=== PATIENT | female | born 1955 ===

== ENCOUNTER 2020-05-24 07:12 | Day surgery (SDC) | payer OTHER ==
[~2020-05-24 07:12] MED LIST: Lactated Ringers 1,000 ML IV SCH; Midazolam 1 MG/ML 2 ML SDV ONE; Propofol 200 MG/20 ML SDV ONE; Sodium Chloride 0.9% 10 ML SDV IV PRN; Sodium Chloride 0.9% 10 ML Syringe FLUSH PRN; Sodium Chloride 0.9% 2.5 ML Syringe FLUSH PRN; fentaNYL 100 MCG/2 ML SDV ONE
--- NOTE | 2020-05-24 07:53 | PCM.PREANE ---
Preanesthetic Assessment - Anesthesia/Transfusion/Family Hx Anesthesia History: Prior Anesthesia Without Reaction Family History of Anesthesia Reaction: No Transfusion History: No Prior Transfusion(s) - Review of Systems General: No Symptoms Pulmonary: No Symptoms Cardiovascular: No Symptoms Gastrointestinal: No Symptoms Neurological: No Symptoms Other: Reports: None - Physical Assessment NPO Status Date: 05/24/20 NPO Status Time: 00:05 Height: 5 ft 6 in Weight: 222 lb ASA Class: 2 Mental Status: Alert & Oriented x3 Airway Class: Mallampati = 3 Dentition: Reports: Normal Dentition ROM/Head Extension: Full Lungs: Clear to Auscultation, Normal Respiratory Effort Cardiovascular: Regular Rate, Regular Rhythm - Allergies Allergies/Adverse Reactions: Allergies Allergy/AdvReac Type Severity Reaction Status Date / Time Penicillins Allergy Itching Verified 05/24/20 07:47 Sulfa (Sulfonamide Allergy Other Verified 05/24/20 07:47 Antibiotics) - Anesthesia Plan Pre-Op Medication Ordered: None - Acknowledgements Anesthesia Type Planned: General Anesthesia Pt an Appropriate Candidate for the Planned Anesthesia: Yes Alternatives and Risks of Anesthesia Discussed w Pt/Guardian: Yes Pt/Guardian Understands and Agrees with Anesthesia Plan: Yes Additional Comments: npo htn no cv problems anxiety depression aodm ambrose no cpap hayfever obesity tob quit 2016 etoh occ par no questions PreAnesthesia Questionnaire HEENT History: Reports: Allergic Rhinitis, Other (See Below) Other HEENT History: wears glasses, has 1 lower back dental implant Cardiovascular History: Reports: Hypertension Respiratory History: Reports: Sleep Apnea Other Respiratory History: does not have a CPAP- thinking about getting one- is scared to use because she is Claustrophobic [employer]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: Musculoskeletal History: Reports: Fracture, Osteoarthritis Other Musculoskeletal History: hx of fx in foot Neurological History: Psychiatric History: Reports: Anxiety, Depression, Other (See Below) Other Psychiatric History: Claustrophobia Endocrine/Metabolic History: Reports: Diabetes, Type II, Obesity/BMI 30+ Oncologic (Cancer) History: Reports: Basal Cell Carcinoma Other Oncologic History: removed from face - Past Surgical History Head Surgeries/Procedures: Reports: None GI Surgical History: Reports: Colonoscopy Female Surgical History: Reports: Cervical Cryotherapy, Tubal Ligation Dermatological Surgical History: Reports: Skin Biopsy - SUBSTANCE USE Tobacco Use Status *Q: Former Tobacco User Tobacco Use Within Last Twelve Months: No Recreational Drug Use History: No - HOME MEDS Home Medications: Home Meds Aspirin [Adult Low Dose Aspirin EC] 81 mg PO DAILY 05/18/20 [History] Calcium Carbonate/Vitamin D3 [Calcium 600-Vit D3 200 Tablet] 1 tab PO DAILY 05/18/20 [History] Fluticasone Propionate [Flonase Allergy Relief] 1 spray NASBOTH DAILY 05/18/20 [History] L.acidoph,Paracasei, B.lactis [Probiotic] 1 cap PO DAILY 05/18/20 [History] Multivitamin 1 tab PO DAILY 05/18/20 [History] Sertraline HCl 100 mg PO ACLUNCH 05/18/20 [History] Turmeric Root Extract [Turmeric Curcumin] 1 cap PO DAILY 05/18/20 [History] atenoloL [Atenolol] 50 mg PO ACLUNCH 05/18/20 [History] hydroCHLOROthiazide [Hydrochlorothiazide] 12.5 mg PO DAILY 05/18/20 [History] metFORMIN HCl [Metformin HCl ER] 500 mg PO BID 05/18/20 [History] - CURRENT (IN HOUSE) MEDS Current Meds: Current Medications Lactated Ringer's (Ringers, Lactated) 1,000 mls @ 125 mls/hr IV ASDIRECTED PAM Last Admin: 05/24/20 07:46 Dose: 125 mls/hr Documented by: Sodium Chloride (Sodium Chloride 0.9% 10 Ml Syringe) 10 ml FLUSH ASDIRECTED PRN PRN Reason: Keep Vein Open Sodium Chloride (Sodium Chloride 0.9% 2.5 Ml Syringe) 2.5 ml FLUSH ASDIRECTED PRN PRN Reason: Keep Vein Open Sodium Chloride (Sodium Chloride 0.9% 10 Ml Syringe) 10 ml FLUSH ASDIRECTED PRN PRN Reason: Keep Vein Open Sodium Chloride (Sodium Chloride 0.9% 2.5 Ml Syringe) 2.5 ml FLUSH ASDIRECTED PRN PRN Reason: Keep Vein Open Sodium Chloride (Sodium Chloride 0.9% 10 Ml Sdv) 10 ml IV ASDIRECTED PRN PRN Reason: IV Use Discontinued Medications Fentanyl (Fentanyl 100 Mcg/2 Ml Sdv) Confirm Administered Dose 100 mcg .ROUTE .STK-MED ONE Stop: 05/24/20 06:57 Midazolam HCl (Midazolam 1 Mg/Ml 2 Ml Sdv) Confirm Administered Dose 2 mg .ROUTE .STK-MED ONE Stop: 05/24/20 06:57 Propofol (Propofol 200 Mg/20 Ml Sdv) Confirm Administered Dose 200 mg .ROUTE .STK-MED ONE Stop: 05/24/20 06:57
[2020-05-24] MEDS ORDERED: Glycopyrrolate 0.2 MG/ML SDV ONE (08:47)
[2020-05-24] MEDS ORDERED: Propofol 200 MG/20 ML SDV ONE (08:51)
--- NOTE | 2020-05-24 09:34 | PCM48HPAN ---
Post Anesthesia Note - EVALUATION WITHIN 48HRS OF ANESTHETIC Vital Signs in Normal Range: Yes Patient Participated in Evaluation: Yes Respiratory Function Stable: Yes Airway Patent: Yes Cardiovascular Function Stable: Yes Hydration Status Stable: Yes Pain Control Satisfactory: Yes Nausea and Vomiting Control Satisfactory: Yes Mental Status Recovered: Yes Vital Signs: Last Vital Signs Temp 96.1 F L 05/24/20 07:51 Pulse 69 05/24/20 09:17 Resp 13 05/24/20 09:17 BP 116/59 L 05/24/20 09:17 Pulse Ox 91 L 05/24/20 09:17
--- NOTE | 2020-05-24 09:34 | PCM.POSTAN ---
POST ANESTHESIA ASSESSMENT - MENTAL STATUS Mental Status: Alert, Oriented - VITAL SIGNS Vital Signs: Last Vital Signs Temp 96.1 F L 05/24/20 07:51 Pulse 69 05/24/20 09:17 Resp 13 05/24/20 09:17 BP 116/59 L 05/24/20 09:17 Pulse Ox 91 L 05/24/20 09:17 - RESPIRATORY Respiratory Status: Respiratory Rate WNL, Airway Patent, O2 Saturation Stable - CARDIOVASCULAR CV Status: Pulse Rate WNL, Blood Pressure Stable - GASTROINTESTINAL GI Status: No Symptoms - POST OP HYDRATION Hydration Status: Adequate & Stable
--- NOTE | 2020-05-24 09:40 | PCM.OPNOTE ---
- General Post-Op/Procedure Note Date of Surgery/Procedure: 05/24/20 Operative Procedure(s): Screening colonoscopy Findings: Diverticulosis of the sigmoid colon Pre Op Diagnosis: Screening colonoscopy Post-Op Diagnosis: Diverticulosis Anesthesia Technique: DAVE Primary Surgeon: Carol Bauer Condition: Good Free Text/Narrative:: Intake & Output 05/23/20 05/24/20 05/24/20 22:59 06:59 14:59 Intake Total 800 Balance 800
--- NOTE | 2020-05-24 23:16 | OR ---
SURGEON: CAROL BAUER MD DATE OF PROCEDURE: 05/24/2020 PREOPERATIVE DIAGNOSIS: Screening colonoscopy. POSTOPERATIVE DIAGNOSIS: Diverticulosis. PROCEDURE PERFORMED: Screening colonoscopy. PRIMARY SURGEON: Carol Bauer MD. ANESTHESIA: MAC. INSTRUMENT USED: Olympus colonoscope. EXTENT OF EXAM: To the cecum. PREPARATION: Good. LIMITATIONS: None. INDICATIONS FOR EXAMINATION: The patient is a 65-year-old female who presented to clinic for screening colonoscopy. I explained the procedure, expected perioperative course, and the risks. The patient verbalized understanding and wishes to proceed. PROCEDURE IN DETAIL: The patient was brought in to the endoscopy suite and placed in a left lateral decubitus position. A time-out was completed verifying the patient's name, age, date of , allergies, and procedure to be performed. Monitored anesthesia care was induced and continuous oxygen was provided via nasal cannula throughout the procedure. After adequate sedation was achieved, a digital rectal exam was performed. This exam was within normal limits. A well-lubricated colonoscope was inserted in the rectum and advanced under direct visualization to the level of the cecum. The cecum was identified by both visual and anatomic landmarks. A photograph was taken of the cecal cap as well as with the scope retroflexed within the cecum. The scope was then fully withdrawn while examining the color, texture, anatomy, and integrity of mucosa from the cecum to the anal canal. The patient was noted to have diverticulosis throughout the sigmoid colon. A photograph of this was taken. The scope was brought into the rectum and retroflexed to allow visualization of the anal canal opening. This appeared normal and a photograph was taken. The scope was then straightened out and fully withdrawn. The cecum to anus time was 10 minutes. The patient tolerated the procedure well and was transferred to the PACU in stable condition. ENDOSCOPIC DIAGNOSIS: Diverticulosis. RECOMMENDATIONS: Follow up in clinic in 2 weeks. SHERRY / RAMIRO /[id number]
== END 2020-05-24 09:47 | disposition home or self-care (01) ==
LOC: MW.SDS 07:12
PROVIDERS: ATTEND Surgery
DX: Z12.11 Encounter for screening for malignant neoplasm of colon (principal); K57.30 Diverticulosis of large intestine without perforation or abscess without bleeding; E11.9 Type 2 diabetes mellitus without complications; I10 Essential (primary) hypertension; G47.33 Obstructive sleep apnea (adult) (pediatric); E66.9 Obesity, unspecified; Z88.0 Allergy status to penicillin; Z88.2 Allergy status to sulfonamides; Z79.82 Long term (current) use of aspirin; Z79.84 Long term (current) use of oral hypoglycemic drugs; Z79.899 Other long term (current) drug therapy; Z98.890 Other specified postprocedural states; Z87.891 Personal history of nicotine dependence
CPT/HCPCS: 45378; 82962; J2250; J2704; J3010; J3490; J7120; 00812

== ENCOUNTER 2022-03-26 16:14 | Observation (INO) | payer OTHER, MEDICARE ==
[2022-03-26] MEDS ORDERED: Sodium Chloride 0.9% 1,000 ML IV ONE ×2 (17:24→19:17)
[2022-03-26] MEDS ORDERED: Alum Hydro/Mag Hydro/Simeth XS 15 ML, Metoclopramide 5 MG, Lidocaine 2% 5 ML PO ONE ×3 (17:25)
[2022-03-26 17:51] LABS: CORONAVIRUS COVID-19 NAA NEGATIVE (NEGATIVE); INFLUENZA A NAA NEGATIVE (NEGATIVE); INFLUENZA B NAA NEGATIVE (NEGATIVE); RESPIRATORY SYNCYTIAL VIR NAA NEGATIVE (NEGATIVE)
[2022-03-26] MEDS ORDERED: Ondansetron 4 MG/2 ML SDV IVPUSH ONE (17:57)
[2022-03-26] MEDS ORDERED: Famotidine 20 MG/2 ML SDV IVPUSH ONE (18:09)
[2022-03-26 19:08] LABS: CARBON DIOXIDE,CO2 25.9 mmol/L (21.0-32.0)
[2022-03-26 19:12] LABS: POTASSIUM,K 2.4 mmol/L (3.5-5.1)
[2022-03-26] MEDS ORDERED: Iopamidol 755 MG/ML 500 ML Multipack Bottle IVPUSH ONE (19:28)
[2022-03-26] MEDS ORDERED: Potassium Chloride Riders 40 MEQ in Premix Bag 1 BAG IV ONE (19:30)
[2022-03-26] MEDS ORDERED: Potassium Chloride 100 ML IV SCH (19:30)
[2022-03-26] MEDS ORDERED: Potassium Chloride 20 MEQ in Premix Bag 1 BAG IV ONE ×2 (20:20→22:30)
[2022-03-26] MEDS ORDERED: Potassium Chloride 20 MEQ in Premix Bag 2 BAG IV ONE (20:25)
[2022-03-26] MEDS ORDERED: Ondansetron 4 MG/2 ML SDV IVPUSH PRN (23:27)
[2022-03-26] MEDS ORDERED: Acetaminophen 325 MG Tab PO PRN (23:29)
[2022-03-27] MEDS: Melatonin 3 MG Tab PO PRN ×2 (02:28→22:22)
[2022-03-27 07:28] LABS: CARBON DIOXIDE,CO2 27.6 mmol/L (21.0-32.0); POTASSIUM,K 2.9 mmol/L (3.5-5.1)
[2022-03-27] MEDS ORDERED: Potassium Chloride 20 MEQ Tab.ER PO ONE (08:03)
[2022-03-27] MEDS ORDERED: NS with KCl 40mEq 1,000 ML IV SCH (08:15)
[2022-03-27] MEDS: Aspirin 81 MG Tab.EC PO SCH (08:33)
[2022-03-27] MEDS: Escitalopram 10 MG Tab PO SCH (08:33)
[2022-03-27] MEDS: Hydrochlorothiazide 12.5 MG Cap PO SCH (08:33)
[2022-03-27] MEDS: Pantoprazole 40 MG in Sodium Chloride 0.9% 10 ML IVPUSH SCH (08:34)
[2022-03-27] MEDS ORDERED: Enoxaparin 40 MG/0.4 ML Syringe SUBCUT SCH (17:00)
[2022-03-27] MEDS: Sodium Chloride 0.9% 1,000 ML IV SCH (18:34)
[2022-03-27] MEDS ORDERED: rOPINIRole 1 MG Tab PO SCH (21:00)
[2022-03-28 06:37] LABS: CARBON DIOXIDE,CO2 26.1 mmol/L (21.0-32.0); POTASSIUM,K 4.3 mmol/L (3.5-5.1)
[2022-03-28] MEDS: Hydrochlorothiazide 12.5 MG Cap PO SCH (08:00)
[2022-03-28] MEDS: Aspirin 81 MG Tab.EC PO SCH (08:00)
[2022-03-28] MEDS: Escitalopram 10 MG Tab PO SCH (08:00)
[2022-03-28] MEDS: Sodium Chloride 0.9% 1,000 ML IV SCH (08:01)
[2022-03-28] MEDS: Pantoprazole 40 MG in Sodium Chloride 0.9% 10 ML IVPUSH SCH (08:04)
== END 2022-03-28 11:55 | disposition home or self-care (01) ==
LOC: MW.ED 16:14 → MW.MS 20:27
PROVIDERS: ADMIT Hospitalist; ATTEND Hospitalist
DX: E86.0 Dehydration (principal); K52.9 Noninfective gastroenteritis and colitis, unspecified; E87.6 Hypokalemia; K57.30 Diverticulosis of large intestine without perforation or abscess without bleeding; K57.90 Diverticulosis of intestine, part unspecified, without perforation or abscess without bleeding; E11.9 Type 2 diabetes mellitus without complications; F41.9 Anxiety disorder, unspecified; F32.A Depression, unspecified; I10 Essential (primary) hypertension; G47.30 Sleep apnea, unspecified; M19.90 Unspecified osteoarthritis, unspecified site; E66.9 Obesity, unspecified; Z86.59 Personal history of other mental and behavioral disorders; Z86.39 Personal history of other endocrine, nutritional and metabolic disease; Z86.79 Personal history of other diseases of the circulatory system; Z79.899 Other long term (current) drug therapy; Z79.82 Long term (current) use of aspirin; Z79.84 Long term (current) use of oral hypoglycemic drugs; Z88.0 Allergy status to penicillin; Z88.2 Allergy status to sulfonamides; Z98.890 Other specified postprocedural states; Z20.822 Contact with and (suspected) exposure to COVID-19
CPT/HCPCS: 0241U; 36415; 71045; 74177; 80053; 81003; 82947; 83690; 83735; 84484; 85025; 93005; 96361; 96365; 96366; 96372; 96375; 96376; 99285; A9270; C9113; G0378; J1650; J2405; J3480; J3490; J7030; Q9967; 93010; 99284